=== PATIENT | female | born 1980 | race Caucasian/White ===

== ENCOUNTER 2017-03-12 05:44 | Emergency (ER) | payer OTHER ==
[2017-03-12 05:51] VITALS: BP 142/91
[2017-03-12] MEDS ORDERED: Sodium Chloride 0.9% 10 ML Syringe FLUSH PRN (06:22)
[2017-03-12] MEDS ORDERED: Pantoprazole 40 MG Vial IVPUSH ONE (06:23)
[2017-03-12] MEDS ORDERED: Ondansetron 4 MG/2 ML SDV IVPUSH ONE (06:23)
[2017-03-12] MEDS ORDERED: Alum Hydrox/Mag Hydrox/Simeth 30 ML, Lidocaine 2% 15 ML PO ONE ×2 (06:24)
--- NOTE | 2017-03-12 06:26 | EDM.PDOC ---
ED HPI GENERAL MEDICAL PROBLEM - General Chief Complaint: Abdominal Pain Stated Complaint: abdominal pain Time Seen by Provider: 03/12/17 06:15 Source of Information: Reports: Patient History Limitations: Reports: No Limitations - History of Present Illness INITIAL COMMENTS - FREE TEXT/NARRATIVE: History and physical: History of present illness: [Patient comes to the emergency room complaining of upper abdominal pain. Her symptoms began yesterday and have continued and gradually gotten worse. She describes the pain as a dull aching sensation to her mid and upper abdomen. She describes it as a sensation of emptiness and a gnawing feeling and is constant. She admits to a history of stomach ulcers in the past which resolved after taking Prilosec. She feels as though her current symptoms are similar, though worse this time. She has taken some Tums which provided minimal short-term relief. She has had some nausea with this episode of discomfort resulting in occasional vomiting. Her pain is not relieved with eating or drinking. No chest pain shortness of breath or difficulty breathing. No blood in her emesis or stools. Bowel movements have been normal. She is Her urinating normally without burning or blood in her urine. No low back pain. No sore throat or sensation of reflux. No headaches or fainting. No fever or chills. Prior to symptoms beginning yesterday patient felt well and has not recently been sick with any illnesses or infections. Last EGD was 2 years ago. She is vacationing in the area and visiting family, and is from [place]. She plans to leave on March 14 and will arrive home on March 16.] Review of Systems: As per history of present illness and below otherwise all systems reviewed and negative. Past medical history: As per history of present illness and as reviewed below otherwise noncontributory. Surgical history: As per history of present illness and is reviewed below other light noncontributory. Social history: No reported history of drug or alcohol abuse. Family history: As per history of present illness and is reviewed below otherwise noncontributory. Physical exam: HEENT: Atraumatic, normocephalic. Oral mucous membranes are pink and moist. Neck is supple no lymphadenopathy. Lungs: Clear to auscultation, breath sounds equal bilaterally. Heart: S1-S2, regular rate and rhythm. Abdomen: bowel sounds are normoactive throughout. Abdomen is Soft, nondistended. she is tender with palpation over epigastric area. No Masses, guarding or rebound. Negative for costovertebral tenderness. Pelvis: Stable, nontender. Genitourinary: Deferred. Rectal: Deferred. Extremities: No swelling or cyanosis to feet or lower legs. Atraumatic and without deformity. No calf pain. Neurovascular unremarkable. Neuro: Awake, alert, oriented. Motor and sensory unremarkable throughout. Exam nonfocal. Psych: Well groomed, is conversational. Diagnostics: [CBC, CMP, amylase, urinalysis, urine ] Therapeutics: [GI cocktail, Zofran 4 mg IV, Protonix 80 mg IV] Impression: [ abdominal pain ] Plan: [ discussed with patient that her lab results are unremarkable. No infection or anemia. Rx written for Protonix 40 mg twice a day #60 0 refills, Zofran 4 mg #6 sig 1 by mouth every 6 hours as needed for nausea 0 refills. Patient's pain resolves completely with the GI cocktail and Zofran. Discussed with her that she should follow-up with her PCP when she returns home and take Protonix twice daily in the meantime. Return to ER as needed as discussed. She is in agreement with today's plan. all of her questions are answered and concerns were addressed.] Definitive disposition and diagnosis is appropriate pending reevaluation and review of above. Abdomen Pain Score (Numeric/FACES): 8 - Related Data Allergies Allergy/AdvReac Type Severity Reaction Status Date / Time amoxicillin Allergy Hives Verified 03/12/17 13:42 Penicillins Allergy Shortness Verified 03/12/17 13:42 of Breath Home Meds: Home Meds DULoxetine [Cymbalta] 20 mg PO DAILY 03/12/17 [History] Past Medical History Gastrointestinal History: Reports: Colon Polyp - Past Surgical History Female Surgical History: Reports: LEEP Social & Family History - Tobacco Use Smoking Status *Q: Unknown Ever Smoked ED ROS GENERAL - Review of Systems Review Of Systems: ROS reveals no pertinent complaints other than HPI. ED EXAM, GI/ABD - Physical Exam Exam: See Below Course - Vital Signs Last Recorded V/S: Last Vital Signs Temp 98 F 03/12/17 05:48 Pulse 83 03/12/17 05:48 Resp 20 03/12/17 05:48 BP 142/91 H 03/12/17 05:48 Pulse Ox 97 03/12/17 05:48 - Orders/Labs/Meds Orders: Active Orders 24 hr Category Date Time Status Saline Lock Insert [OM.PC] Stat Oth 03/12/17 06:22 Ordered Labs: Laboratory Tests 03/12/17 03/12/17 03/12/17 Range/Units 06:22 06:22 06:40 WBC 8.8 (5.0-10.0) 10^3/uL RBC 4.43 (4.00-5.50) 10^6/uL Hgb 13.9 (12.0-16.0) g/dL Hct 41.2 (37.0-47.0) % MCV 93.0 (82.0-94.0) fL MCH 31.4 (27.0-32.0) pg MCHC 33.7 (33.0-38.0) g/dL RDW Coeff of Janis 13.5 (11.0-15.0) % Plt Count 306 (150-400) 10^3/uL Neut % (Auto) 76.2 (35-85) % Lymph % (Auto) 18.0 (10-55) % [place] % (Auto) 4.5 (0-16) % Eos % (Auto) 1.0 (0-5) % Baso % (Auto) 0.3 (0-3) % Neut # (Auto) 6.73 (1.80-7.00) 10^3/uL Lymph # (Auto) 1.59 (1.00-4.80) 10^3/uL [place] # (Auto) 0.40 (0.00-0.80) 10^3/uL Eos # (Auto) 0.09 (0.00-0.45) 10^3/uL Baso # (Auto) 0.03 10^3/uL Sodium (136-145) mEq/L Potassium (3.5-5.0) mEq/L Chloride (98-106) mEq/L Carbon Dioxide (21-32) mmol/L BUN (7-18) mg/dL Creatinine (0.6-1.0) mg/dL Est Cr Clr Drug Dosing mL/min Estimated GFR (MDRD) (>=60) mL/min Glucose (75-99) mg/dL Calcium (8.4-10.1) mg/dL Total Bilirubin (0.0-1.0) mg/dL AST (15-37) U/L ALT (12-78) U/L Alkaline Phosphatase (46-116) U/L Total Protein (6.4-8.2) g/dL Albumin (3.4-5.0) g/dL Amylase (25-115) U/L Urine Color Yellow (YELLOW) Urine Appearance Clear (CLEAR) Urine pH 6.0 (4.5-8.0) Ur Specific Ida 1.013 (1.003-1.020) Urine Protein Negative (NEGATIVE) mg/dL Urine Glucose (UA) Negative (NEGATIVE) mg/dL Urine Ketones Negative (NEGATIVE) mg/dL Urine Occult Blood Negative (NEGATIVE) Urine Nitrite Negative (NEGATIVE) Urine Bilirubin Negative (NEGATIVE) Urine Urobilinogen 0.2 (0.2-1.0) EU/dL Ur Leukocyte Esterase Negative (NEGATIVE) Urine RBC Not seen (0-5) /HPF Urine WBC Not seen (0-5) /HPF Ur Squamous Epith Cells Occasional H (NOT SEEN) /HPF Urine Bacteria Occasional H (NOT SEEN) /HPF Urine HCG, Qual Negative 03/12/17 Range/Units 06:40 WBC (5.0-10.0) 10^3/uL RBC (4.00-5.50) 10^6/uL Hgb (12.0-16.0) g/dL Hct (37.0-47.0) % MCV (82.0-94.0) fL MCH (27.0-32.0) pg MCHC (33.0-38.0) g/dL RDW Coeff of Janis (11.0-15.0) % Plt Count (150-400) 10^3/uL Neut % (Auto) (35-85) % Lymph % (Auto) (10-55) % [place] % (Auto) (0-16) % Eos % (Auto) (0-5) % Baso % (Auto) (0-3) % Neut # (Auto) (1.80-7.00) 10^3/uL Lymph # (Auto) (1.00-4.80) 10^3/uL [place] # (Auto) (0.00-0.80) 10^3/uL Eos # (Auto) (0.00-0.45) 10^3/uL Baso # (Auto) 10^3/uL Sodium 138 (136-145) mEq/L Potassium 4.1 (3.5-5.0) mEq/L Chloride 105 (98-106) mEq/L Carbon Dioxide 27 (21-32) mmol/L BUN 13 (7-18) mg/dL Creatinine 1.0 (0.6-1.0) mg/dL Est Cr Clr Drug Dosing 60.33 mL/min Estimated GFR (MDRD) > 60 (>=60) mL/min Glucose 114 H (75-99) mg/dL Calcium 8.7 (8.4-10.1) mg/dL Total Bilirubin 0.3 (0.0-1.0) mg/dL AST 14 L (15-37) U/L ALT 20 (12-78) U/L Alkaline Phosphatase 58 (46-116) U/L Total Protein 7.3 (6.4-8.2) g/dL Albumin 3.1 L (3.4-5.0) g/dL Amylase 53 (25-115) U/L Urine Color (YELLOW) Urine Appearance (CLEAR) Urine pH (4.5-8.0) Ur Specific Ida (1.003-1.020) Urine Protein (NEGATIVE) mg/dL Urine Glucose (UA) (NEGATIVE) mg/dL Urine Ketones (NEGATIVE) mg/dL Urine Occult Blood (NEGATIVE) Urine Nitrite (NEGATIVE) Urine Bilirubin (NEGATIVE) Urine Urobilinogen (0.2-1.0) EU/dL Ur Leukocyte Esterase (NEGATIVE) Urine RBC (0-5) /HPF Urine WBC (0-5) /HPF Ur Squamous Epith Cells (NOT SEEN) /HPF Urine Bacteria (NOT SEEN) /HPF Urine HCG, Qual Meds: Medications Discontinued Medications Generic Name Dose Route Start Last Admin Trade Name Freq PRN Reason Stop Dose Admin Al Hydroxide/Mg Hydroxide 30 0 ml 03/12/17 06:24 03/12/17 06:51 ml/ Lidocaine HCl 15 ml PO 03/12/17 06:25 30 ml ONETIME ONE Administration Lidocaine HCl Confirm 03/12/17 07:02 03/12/17 06:52 Xylocaine 2% Viscous Administered 03/12/17 07:03 Not Given Dose 15 ml .ROUTE .STK-MED ONE Ondansetron HCl 4 mg 03/12/17 06:23 03/12/17 06:42 Zofran IVPUSH 03/12/17 06:24 4 mg ONETIME ONE Administration Pantoprazole Sodium 80 mg 03/12/17 06:23 03/12/17 06:44 Protonix Iv IVPUSH 03/12/17 06:24 80 mg .BOLUS ONE Administration Sodium Chloride 10 ml 03/12/17 06:22 03/12/17 06:45 Saline Flush FLUSH 10 ml ASDIRECTED PRN Administration Keep Vein Open Departure - Departure Time of Disposition: :18 Disposition: Home, Self-Care 01 Condition: Good Clinical Impression: Epigastric abdominal pain - Discharge Information Referrals: PCP,Not In Area [Primary Care Provider] - Forms: ED Department Discharge Additional Instructions: The following information is given to patients seen in the emergency department who are being discharged home. This information is to outline your options for follow-up care and provides all patient seen in our emergency department with a follow-up referral. The need for follow-up, as well as the timing and circumstances, are variable depending upon the specifics of each emergency department visit. If you don't have a primary care physician on staff, we will provide you with a referral. We always advise to contact your personal physician following an emergency department visit to inform them of the circumstances of the visit and for follow-up with them and/or the need for any referrals to a consulting specialist. The emergency department will also refer you to a specialist when appropriate. This referral assures that you have the opportunity for follow-up care with a specialist. All of these measures are taken in an effort to provide you with optimal care, which includes your follow-up. Under all circumstances we always encourage you to contact your private physician who remains a resource for coordinating your care. When calling for follow-up care, please make the office aware that this follow-up is from your recent emergency room visit. If for any reason you are refused follow-up please contact the [facility] emergency department at [phone] and ask to speak to the emergency department nurse. Followup with your primary care provider in the next 48-72 hours. Take medications as prescribed and instructed. Return to ER as needed as discussed. - My Orders Last 24 Hours: My Active Orders 03/12/17 06:22 Saline Lock Insert [OM.PC] Stat - Assessment/Plan Last 24 Hours: My Active Orders 03/12/17 06:22 Saline Lock Insert [OM.PC] Stat
[2017-03-12 06:53] LABS: CHLORIDE,CL 105 mEq/L (98-106); SODIUM,NA 138 mEq/L (136-145)
[2017-03-12] MEDS ORDERED: Lidocaine 2% Viscous Solution 15 ML Cup ONE (07:02)
== END 2017-03-12 07:55 | disposition home or self-care (01) ==
LOC: CC.ED 05:44
DX: R10.13 Epigastric pain (principal); Z88.1 Allergy status to other antibiotic agents; Z88.0 Allergy status to penicillin; Z79.899 Other long term (current) drug therapy
CPT/HCPCS: 36415; 80053; 81001; 81025; 82150; 85025; 96374; 96375; 99283; A9270; C9113; J2405; J7050

== ENCOUNTER 2017-03-12 13:41 | Observation (INO) | payer OTHER ==
[2017-03-12] MEDS ORDERED: Alum Hydrox/Mag Hydrox/Simeth 30 ML, Lidocaine 2% 15 ML PO ONE ×2 (13:52)
[2017-03-12] MEDS ORDERED: Sodium Chloride 0.9% 10 ML Syringe FLUSH PRN (13:52)
[2017-03-12] MEDS ORDERED: fentaNYL 100 MCG/2 ML SDV IVPUSH ONE (14:00)
[2017-03-12] MEDS ORDERED: Iopamidol 612 MG/ML 100 ML Bottle IVPUSH ONE (14:23)
--- NOTE | 2017-03-12 15:20 | EDM.PDOC ---
ED HPI GENERAL MEDICAL PROBLEM - General Chief Complaint: Abdominal Pain Stated Complaint: abdominal pain Time Seen by Provider: 03/12/17 13:42 Source of Information: Reports: Patient History Limitations: Reports: No Limitations - History of Present Illness INITIAL COMMENTS - FREE TEXT/NARRATIVE: History and physical: History of present illness: [Patient returns to the emergency room this afternoon complaining of continued and worsened upper abdominal pain. She is accompanied by her mom. Patient felt significant improvement following GI cocktail and Zofran and Protonix this morning but feels as though these medications have worn off. She's had one episode of vomiting and has taken Zofran since she was discharged from the emergency room. Her symptoms are unchanged from previous visit today. She comes to the emergency room requesting relief from the pain in her abdomen. Rates pain as 9/10 upon presentation to the ER.] Review of Systems: As per history of present illness and below otherwise all systems reviewed and negative. Past medical history: As per history of present illness and as reviewed below otherwise noncontributory. Surgical history: As per history of present illness and is reviewed below other light noncontributory. Social history: No reported history of drug or alcohol abuse. Family history: As per history of present illness and is reviewed below otherwise noncontributory. Physical exam: HEENT: Atraumatic, normocephalic. Oral mucous membranes are pink and moist. Abdomen: Bowel sounds are normoactive throughout. Abdomen is soft and nondistended. Epigastric discomfort continues with palpation. No CVA tenderness. Pelvis: Stable, nontender. Genitourinary: Deferred. Rectal: Deferred. Extremities: atraumatic and without deformity. Neuro: Awake, alert, oriented. Motor and sensory unremarkable throughout. Exam nonfocal. Diagnostics: [CT abdomen and pelvis with IV contrast] Therapeutics: [Fentanyl 12.5 mcg IV, GI cocktail] Impression: [Epigastric pain] Plan: [Patient's pain improved from 9/10 to 5/10 with GI cocktail and fentanyl 12.[address] of her abdomen is unremarkable per Dr. Simmons at [facility]. Discussed options for treatment including discharged to home with Carafate or observation for IV medication and rehydration. Patient agrees to observation for rehydration and pain control. This note is to serve as observation admission H&P. ] Definitive disposition and diagnosis is appropriate pending reevaluation and review of above. Abdominal Pain Score (Numeric/FACES): 9 - Related Data Allergies Allergy/AdvReac Type Severity Reaction Status Date / Time amoxicillin Allergy Hives Verified 03/12/17 13:42 Penicillins Allergy Shortness Verified 03/12/17 13:42 of Breath Home Meds: Home Meds DULoxetine [Cymbalta] 20 mg PO DAILY 03/12/17 [History] Past Medical History Gastrointestinal History: Reports: Colon Polyp Neurological History: Reports: Migraines Psychiatric History: Reports: Anxiety, Depression - Past Surgical History GI Surgical History: Reports: Colonoscopy Female Surgical History: Reports: LEEP Social & Family History - Tobacco Use Smoking Status *Q: Never Smoker - Caffeine Use Caffeine Use: Reports: None - Recreational Drug Use Recreational Drug Use: No ED ROS GENERAL - Review of Systems Review Of Systems: ROS reveals no pertinent complaints other than HPI. ED EXAM, GI/ABD - Physical Exam Exam: See Below Course - Vital Signs Last Recorded V/S: Last Vital Signs Temp 97.5 F 03/12/17 15:42 Pulse 68 03/12/17 15:42 Resp 18 03/12/17 15:42 BP 152/93 H 03/12/17 15:42 Pulse Ox 99 03/12/17 15:42 - Orders/Labs/Meds Orders: Active Orders 24 hr Category Date Time Status Abdomen Pelvis w Cont [CT] Stat Exams 03/12/17 13:54 Taken Ondansetron [Zofran] Med 03/12/17 14:09 Active 4 mg IVPUSH Q6H PRN Saline Lock Insert [OM.PC] Stat Oth 03/12/17 13:52 Ordered Medication Orders Sodium Chloride (Normal Saline) 1,000 mls @ 125 mls/hr IV ASDIRECTED NEHEMIAS Last Admin: 03/12/17 16:55 Dose: 125 mls/hr Ondansetron HCl (Zofran) 4 mg IVPUSH Q6H PRN PRN Reason: Nausea/Vomiting Last Admin: 03/12/17 16:26 Dose: 4 mg Pantoprazole Sodium (Protonix Iv) 80 mg IVPUSH .BOLUS NEHEMIAS Sucralfate (Carafate) 1 gm PO QID NEHEMIAS Last Admin: 03/12/17 15:44 Dose: 1 gm Meds: Medications Generic Name Dose Route Start Last Admin Trade Name Freq PRN Reason Stop Dose Admin Sodium Chloride 1,000 mls @ 125 mls/hr 03/12/17 16:45 03/12/17 16:55 Normal Saline IV 125 mls/hr ASDIRECTED NEHEMIAS Administration Ondansetron HCl 4 mg 03/12/17 14:09 03/12/17 16:26 Zofran IVPUSH 4 mg Q6H PRN Administration Nausea/Vomiting Pantoprazole Sodium 80 mg 03/12/17 20:00 Protonix Iv IVPUSH .BOLUS NEHEMIAS Sucralfate 1 gm 03/12/17 16:00 03/12/17 15:44 Carafate PO 1 gm QID NEHEMIAS Administration Discontinued Medications Generic Name Dose Route Start Last Admin Trade Name Lance PRN Reason Stop Dose Admin Al Hydroxide/Mg Hydroxide 30 0 ml 03/12/17 13:52 03/12/17 13:55 ml/ Lidocaine HCl 15 ml PO 03/12/17 13:53 45 ml ONETIME ONE Administration Fentanyl 12.5 mcg 03/12/17 14:00 03/12/17 14:07 Sublimaze IVPUSH 03/12/17 14:01 12.5 mcg ONETIME ONE Administration Sodium Chloride 1,000 mls @ 999 mls/hr 03/12/17 15:30 03/12/17 15:44 Normal Saline IV 03/12/17 16:31 999 mls/hr STAT NEHEMIAS Administration Iopamidol 100 ml 03/12/17 14:23 03/12/17 14:24 Isovue-300 (61%) IVPUSH 03/12/17 14:24 100 ml ONETIME ONE Administration Sodium Chloride 10 ml 03/12/17 13:52 Saline Flush FLUSH ASDIRECTED PRN Keep Vein Open Departure - Departure Time of Disposition: 15:17 Disposition: Refer to Observation Condition: Good Clinical Impression: Abdominal pain Qualifiers: Abdominal location: epigastric Qualified Code(s): R10.13 - Epigastric pain - Discharge Information - My Orders Last 24 Hours: My Active Orders 03/12/17 13:52 Saline Lock Insert [OM.PC] Stat 03/12/17 13:54 Abdomen Pelvis w Cont [CT] Stat 03/12/17 14:09 Ondansetron [Zofran] 4 mg IVPUSH Q6H PRN - Assessment/Plan Last 24 Hours: My Active Orders 03/12/17 13:52 Saline Lock Insert [OM.PC] Stat 03/12/17 13:54 Abdomen Pelvis w Cont [CT] Stat 03/12/17 14:09 Ondansetron [Zofran] 4 mg IVPUSH Q6H PRN
[2017-03-12] MEDS ORDERED: Sodium Chloride 0.9% 1,000 ML IV SCH (15:30)
[2017-03-12] MEDS: Sucralfate 1 GM Tab PO SCH ×2 (15:44→19:39)
[2017-03-12] MEDS: Ondansetron 4 MG/2 ML SDV IVPUSH PRN (16:26)
[2017-03-12] MEDS: Sodium Chloride 0.9% 1,000 ML IV SCH (16:55)
[2017-03-12] MEDS ORDERED: HYDROmorphone 1 MG/ML Syringe IV ONE (18:46)
[2017-03-12] MEDS ORDERED: Pantoprazole 40 MG Vial IVPUSH SCH (20:00)
[2017-03-12] MEDS ORDERED: HYDROmorphone 1 MG/ML Syringe IVPUSH PRN (20:30)
[2017-03-12] MEDS: Pantoprazole 40 MG Vial IVPUSH SCH (20:37)
[2017-03-13] MEDS: Sodium Chloride 0.9% 1,000 ML IV SCH ×2 (00:55→08:51)
[2017-03-13] MEDS: Sucralfate 1 GM Tab PO SCH ×2 (07:05→11:59)
[2017-03-13 07:48] VITALS: BP 131/89
[2017-03-13] MEDS: Pantoprazole 40 MG Vial IVPUSH SCH (07:49)
[2017-03-13] MEDS ORDERED: Magnesium Hydroxide 400 MG/5 ML Susp 30 ML Cup PO ONE (09:38)
[2017-03-13] MEDS: Ondansetron 4 MG/2 ML SDV IVPUSH PRN (09:51)
[2017-03-13] MEDS ORDERED: Ketorolac 30 MG/ML SDV IVPUSH ONE (10:55)
[2017-03-13] MEDS ORDERED: Acetaminophen/HYDROcodone 325-5 MG Tab PO ONE (12:00)
[2017-03-13] MEDS ORDERED: Sucralfate 1 GM Tab PO ONE (12:12)
[2017-03-13] MEDS ORDERED: Take Home: Acetaminophen/HYDROcodone 325-5 MG, 2 Tab Pack ONE (12:25)
[2017-03-13] MEDS ORDERED: Take Home: Acetaminophen/HYDROcodone 325-5 MG, 2 Tab Pack PO ONE (12:28)
--- NOTE | 2017-03-13 15:52 | PCM.DCSUM1 ---
Discharge Summary - Hospital Course Free Text/Narrative:: Patient was admitted to observation through ER the afternoon of March 12. She presented twice on March 12 to the ER for abdominal pain. On observation she was treated with Carafate orally, Protonix IV and Dilaudid as needed. Patient slept well through the night and had significantly improved abdominal pain. She is feeling improved and is ready to be discharged. CT abdomen and pelvis was unremarkable. - Discharge Data Discharge Date: 03/13/17 Discharge Disposition: Home, Self-Care 01 Condition: Good - Discharge Diagnosis/Problem(s) (1) Abdominal pain SNOMED Code(s): 87620080 ICD Code: R10.9 - UNSPECIFIED ABDOMINAL PAIN Status: Acute Current Visit : Yes Qualifiers: Abdominal location: epigastric Qualified Code(s): R10.13 - Epigastric pain - Patient Instructions Diet: Clear Liquid Diet Diet, Other: Increase as tolerated Driving: Do Not Drive (Today) - Discharge Plan Home Medications: Home Meds DULoxetine [Cymbalta] 20 mg PO DAILY 03/12/17 [History] Forms: ED Department Discharge Referrals: PCP,None [Primary Care Provider] - - Discharge Summary/Plan Comment DC Time >30 min.: No Discharge Summary/Plan Comment: Discharge to home. Rx given for hydrocodone 5/325 #20 sig: One by mouth every 6 hours as needed for pain 0 refills. She is given a take-home pack of #2. She is given a prescription for Carafate 1 g #40 si by mouth 4 times a day 0 refills. She is given 3 tablets to take until she can get her prescription filled at the local pharmacy. Patient needs to follow-up with her regular medical provider when she returns home to [place]. Discussed with patient that her pain may not significantly improved over the next 24-48 hours that she should have a gradual improvement over the next few days. - General Info Date of Service: 03/13/17 Admission Dx/Problem (Free Text: abdominal pain Functional Status: Reports: pain controlled, tolerating diet, ambulating, urinating - Review of Systems General: Reports: No Symptoms HEENT: Reports: no symptoms Pulmonary: Reports: no symptoms Cardiovascular: Reports: No Symptoms Gastrointestinal: Reports: Abdominal pain (Improved), Nausea (improved). Denies : Constipation, Decreased appetite, Diarrhea, Difficulty swallowing Genitourinary: Reports: no symptoms Musculoskeletal: Reports: no symptoms Neurological: Reports: No Symptoms Psychiatric: Reports: no symptoms - Patient Data Vitals - Most Recent: Last Vital Signs Temp 97.5 F 03/13/17 07:48 Pulse 61 03/13/17 07:48 Resp 16 03/13/17 07:48 BP 131/89 03/13/17 07:48 Pulse Ox 96 03/13/17 07:48 Weight - Most Recent: 166 lb I&O - Last 24 hours: Intake & Output 03/13/17 03/13/17 03/13/17 06:59 14:59 22:59 Intake Total 1000 5331 Balance 1000 5331 Med Orders - Current: Current Medications Hydromorphone HCl (Dilaudid) 0.5 mg IVPUSH Q2H PRN PRN Reason: Pain Sodium Chloride (Normal Saline) 1,000 mls @ 125 mls/hr IV ASDIRECTED [facility] Last Admin: 03/13/17 08:51 Dose: 125 mls/hr Ondansetron HCl (Zofran) 4 mg IVPUSH Q6H PRN PRN Reason: Nausea/Vomiting Last Admin: 03/13/17 09:51 Dose: 4 mg Pantoprazole Sodium (Protonix Iv) 80 mg IVPUSH BID [facility] Last Admin: 03/13/17 07:49 Dose: 80 mg Sucralfate (Carafate) 1 gm PO QID [facility] Last Admin: 03/13/17 11:59 Dose: Not Given Discontinued Medications Hydrocodone Bitart/Acetaminophen (Take Home: Acetaminophen/Hydrocod, 2 Tab Pack ) 1 packet PO ONETIME ONE Stop: 03/13/17 12:29 Last Admin: 03/13/17 12:42 Dose: 1 packet Hydrocodone Bitart/Acetaminophen (Take Home: Acetaminophen/Hydrocod, 2 Tab Pack ) Confirm Administered Dose 1 packet .ROUTE .STK-MED ONE Stop: 03/13/17 12:26 Last Admin: 03/13/17 12:42 Dose: Not Given Al Hydroxide/Mg Hydroxide 30 (ml/ Lidocaine HCl 15 ml) 0 ml PO ONETIME ONE Stop: 03/12/17 13:53 Last Admin: 03/12/17 13:55 Dose: 45 ml Fentanyl (Sublimaze) 12.5 mcg IVPUSH ONETIME ONE Stop: 03/12/17 14:01 Last Admin: 03/12/17 14:07 Dose: 12.5 mcg Hydromorphone HCl (Dilaudid) 0.5 mg IV ONETIME ONE Stop: 03/12/17 18:47 Last Admin: 03/12/17 19:11 Dose: 0.5 mg Sodium Chloride (Normal Saline) 1,000 mls @ 999 mls/hr IV STAT NEHEMIAS Stop: 03/12/17 16:31 Last Admin: 03/12/17 15:44 Dose: 999 mls/hr Iopamidol (Isovue-300 (61%)) 100 ml IVPUSH ONETIME ONE Stop: 03/12/17 14:24 Last Admin: 03/12/17 14:24 Dose: 100 ml Ketorolac Tromethamine (Toradol) 30 mg IVPUSH ONETIME ONE Stop: 03/13/17 10:56 Last Admin: 03/13/17 11:18 Dose: 30 mg Magnesium Hydroxide (Milk Of Magnesia) 30 ml PO ONETIME ONE Stop: 03/13/17 09:39 Last Admin: 03/13/17 09:50 Dose: 30 ml Pantoprazole Sodium (Protonix Iv) 80 mg IVPUSH .BOLUS NEHEMIAS Sodium Chloride (Saline Flush) 10 ml FLUSH ASDIRECTED PRN PRN Reason: Keep Vein Open Sucralfate (Carafate) 1 gm PO ONETIME ONE Stop: 03/13/17 12:13 Last Admin: 03/13/17 12:42 Dose: 1 gm - Exam General: Reports: alert, oriented, cooperative Neck: Reports: supple Lungs: Reports: Clear to auscultation, Normal respiratory effort Cardiovascular: Reports: Regular Rate, Regular Rhythm Abdomen: Reports: bowel sounds present, soft, tenderness (TTP over epigastric area and mid abdomen). Denies: distension, CVA tenderness Extremities: Reports: no edema Neurological: Reports: no new focal deficit Psy/Mental Status: Reports: alert, normal affect, normal mood *Q Meaningful Use (DIS) - VTE *Q VTE Criteria *Q: - Stroke *Q Stroke Criteria *Q: - AMI *Q AMI Criteria *Q:
== END 2017-03-13 12:45 | disposition home or self-care (01) ==
LOC: CC.ED 13:41 → CC.MS 15:20 → UNDOADMOB 15:20 → CC.MS 15:42 → UNDODISOB 03-13 12:45
PROVIDERS: ADMIT Nurse Practitioner Family; ATTEND Nurse Practitioner Family
DX: R10.13 Epigastric pain (principal); F41.9 Anxiety disorder, unspecified; F32.9 Major depressive disorder, single episode, unspecified; Z88.0 Allergy status to penicillin; Z88.1 Allergy status to other antibiotic agents; Z79.899 Other long term (current) drug therapy; Z98.890 Other specified postprocedural states
CPT/HCPCS: 74177; 96361; 96374; 96375; 96376; 99284; A9270; C9113; G0378; J1170; J1885; J2405; J3010; J7030; Q9967